=== PATIENT | female | born 1960 | race Caucasian/White ===

== ENCOUNTER 2021-04-09 17:22 | Emergency (ER) | payer OTHER ==
[~2021-04-09] VITALS: Ht 160 cm; Wt 80.7 kg
[2021-04-09] MEDS ORDERED: REVIA 50 MG TAB50 M1 PO (17:44)
[2021-04-09] MEDS ORDERED: HYDROXYZINE HCL50 MG PO (17:44)
[2021-04-09] MEDS ORDERED: LEVO-T75 MCG PO (17:44)
[2021-04-09 18:21] LABS: ABSOLUTE LYMPHOCYTES 2.4 thou/uL (0.8-5.3); ABSOLUTE MONOCYTES 0.6 thou/uL (0.0-1.2); ABSOLUTE NEUTROPHILS 2.8 thou/uL (1.6-8.1); BASOPHILS 0.7 %; EOSINOPHILS 0.6 %; HEMATOCRIT 38.9 % (37.0-47.0); HEMOGLOBIN 13.5 gm/dL (12.0-15.0); LYMPHOCYTES 40.8 %; MCHC 34.7 g/dL (28.0-37.0); MCV 89.5 fL (80.0-100.0); MONOCYTES 10.1 %; MPV 7.3 fl. (7.2-11.1); NUCLEATED RBCS 0 /100WBC; PLATELET COUNT* 248 thou/uL (150-400); POLYS 47.8 %; RBC 4.35 mil/uL (4.20-5.00); RDW-CV 13.1 % (10.5-14.5); WBC 5.9 thou/uL (4.0-11.0)
[2021-04-09 18:59] LABS: CALCIUM 8.7 mg/dL (8.5-10.1); CREATININE 0.9 mg/dL (0.6-1.3); POTASSIUM 3.9 mmol/L (3.5-5.1)
[2021-04-09 19:03] LABS: ALBUMIN 3.5 g/dL (3.4-5.0); TOTAL BILIRUBIN 0.3 mg/dL (<0.1-1.0); TOTAL PROTEIN 6.8 g/dL (6.4-8.2)
[2021-04-09 20:20] VITALS: BP 130/62
--- NOTE | 2021-04-10 10:23 | EKG ---
[place] [address] ELECTROCARDIOGRAM REPORT Name: NICK JUAN Room: [facility]#: [id number] Admission: 04/09/21 Attend Phys: Discharge: 04/09/21 Date of : 60 Date of Service: 04/09/21 175 Report #: [id number] THIS REPORT FOR: //name// [facility] ED Test Date: 2021-04-09 Test Time: 17:51:23 Pat Name: NICK JUAN Department: Room: Gender: F [employer]: : [id number] Requested By: Lauro Grimaldo Order Number: [id number] MD: Rodrick Roman Measurements Intervals [place] Rate: 73 P: 53 HI: 155 QRS: 55 QRSD: 90 T: 87 QT: 379 QTc: 418 Interpretive Statements Sinus rhythm Nonspecific T abnrm, anterolateral leads No previous ECG available for comparison Electronically Signed On 04-10-2021 10:23:24 CDT by Rodrick Roman [email or web address] <ELECTRONICALLY SIGNED> By: Rodrick Roman MD, [facility] 04/10/21 1023 50 50 Rodrick Roman MD, FACC /EPI
== END 2021-04-09 20:21 | disposition home or self-care (01) ==
LOC: M.ERS 17:22
PROVIDERS: Emergency Medicine Emergency Medical Services
DX: R55 Syncope and collapse (principal); R42 Dizziness and giddiness; M79.7 Fibromyalgia; Z88.0 Allergy status to penicillin